=== PATIENT | male | born 1965 | race Caucasian/White ===

== ENCOUNTER 2019-02-23 21:56 | Emergency (ER) | payer BC, OTHER ==
--- NOTE | 2019-02-24 00:29 | ED ---
Lower Extremity - HPI Summary HPI Summary: 53-year-old male presents with left ankle and foot pain today. He states he feel out of a tree about 14 feet landing on his foot. He landed flat foot. Denies any back pain. No numbness or tingling. No previous fracture to the area. unable to place any weight on the foot. no other injury. Has no medical conditions. - History of Current Complaint Chief Complaint: EDExtremityLower Stated Complaint: FELL OUT OF TREE PER PT Time Seen by Provider: 02/24/19 00:04 Pain Intensity: 7 - Allergies/Home Medications Allergies/Adverse Reactions: Allergies Allergy/AdvReac Type Severity Reaction Status Date / Time WHEAT Allergy SENSITIVE Uncoded 02/24/19 00:18 PMH/Surg Hx/FS Hx/Imm Hx Endocrine/Hematology History: Denies: Hx Anticoagulant Therapy Cardiovascular History: Denies: Hx Myocardial Infarction Musculoskeletal History: Reports: Other Musculoskeletal History - LEFT ELBOW "PULLED OUT WHILE MOVING"- PATIENT STATES IS IMPROVING Sensory History: Reports: Hx Contacts or Glasses - GLASSES Denies: Hx Hearing Aid Opthamlomology History: Reports: Hx Contacts or Glasses - GLASSES - Surgical History Surgery Procedure, Year, and Place: 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 2006- COLONOSCOPY Hx Anesthesia Reactions: No Infectious Disease History: No Infectious Disease History: Denies: Traveled Outside the [place] in Last 30 Days - Family History Known Family History: Positive: Non-Contributory - Social History Alcohol Use: Rare Alcohol Amount: 1 GLASS OF WINE Q 2 WEEKS Substance Use Type: Reports: None Smoking Status (MU): Never Smoked Tobacco Review of Systems Negative: Fever Negative: Chest Pain Negative: Shortness Of Breath Positive: Myalgia - left foot pain All Other Systems Reviewed And Are Negative: Yes Physical Exam Triage Information Reviewed: Yes Vital Signs On Initial Exam: Initial Vitals Temp Pulse Resp BP Pulse Ox 98.8 F 62 16 121/74 98 02/23/19 21:57 02/23/19 21:57 02/23/19 21:57 02/23/19 21:57 02/23/19 21:57 Vital Signs Reviewed: Yes Appearance: Positive: Well-Appearing Skin: Positive: Warm, Dry Head/Face: Positive: Normal Head/Face Inspection Eyes: Positive: Normal, Conjunctiva Clear ENT: Positive: Pharynx normal Respiratory/Lung Sounds: Positive: Clear to Auscultation, Breath Sounds Present Cardiovascular: Positive: Normal, RRR Musculoskeletal: Positive: Strength/ROM Intact - left ankle and foot, Other - tenderness left ankle malleolus, good pulses, tenderness heel of foot, nontender back and full ROM back, good pulses Neurological: Positive: Normal Psychiatric: Positive: Normal Procedures - Splinting foot Location: left foot Hand-Made Type: orthoglass Splint: posterior walking Pre-Proc Neuro Vasc Exam: normal Post-Proc Neuro Vasc Exam: normal Diagnostics - Vital Signs Vital Signs Temp Pulse Resp BP Pulse Ox 02/23/19 21:57 98.8 F 62 16 121/74 98 - Laboratory Lab Statement: Any lab studies that have been ordered have been reviewed, and results considered in the medical decision making process. - Radiology foot Radiology Interpretation Completed By: ED Physician Summary of Radiographic Findings: calcaneous fracture Lower Extremity Course/Dx - Course Course Of Treatment: 53-year-old male presents with left ankle and foot pain today. He states he feel out of a tree about 14 feet landing on his foot. He landed flat foot. Denies any back pain. No numbness or tingling. No previous fracture to the area. unable to place any weight on the foot. no other injury. Has no medical conditions. On exam tenderness over lateral malleolus left ankle and heel. Neurovascular intact. X-ray shows a calcaneus fracture. Patient nontender back and full range of motion of the back. Place patient in a posterior splint and given crutches and told to be nonweight bearing. We'll have follow-up with orthopedic. Told if develop any back pain to return. Patient understand and agrees with plan. - Diagnoses Differential Diagnosis/HQI/PQRI: Positive: Fracture (Closed), Sprain, Strain Provider Diagnoses: Calcaneus fracture, left Discharge - Sign-Out/Discharge Documenting (check all that apply): Patient Departure Patient Received Moderate/Deep Sedation with Procedure: No - Discharge Plan Condition: Good Disposition: HOME Patient Education Materials: Foot Fracture in Adults (ED) Referrals: Nino Crandall MD [Primary Care Provider] - Sergio Paiz MD [Medical Doctor] - Additional Instructions: Use crutches and stay nonweight bearing Keep splint on area and keep dry Call ortho office tomorrow to set up appointment for follow up Use ibuprofen or tyenlol for pain every 6 hours Ice, elevate Return to ED if develop numbness or tingling or any new or worsening symptoms - Billing Disposition and Condition Condition: GOOD Disposition: Home
[2019-02-24 00:46] VITALS: BP 119/80
== END 2019-02-24 00:45 | disposition home or self-care (01) ==
LOC: ED 21:56
DX: S92.002A Unspecified fracture of left calcaneus, initial encounter for closed fracture (principal); W14.XXXA Fall from tree, initial encounter
CPT/HCPCS: 99282